=== PATIENT | female | born 1990 | race Hispanic/Latino ===

== ENCOUNTER 2018-10-30 20:35 | Emergency (ER) | payer MEDICAID, SELFPAY ==
[2018-10-30 21:55] LABS: Pregnancy Test - Urine (BHCG) Negative (Negative); Pregu Control Background? CLEAR/WHITE (CLR/WHITE); Pregu Control Bar Appear? YES (CONTROL BAR); Specific Gravity 1.032 (1.002-1.036)
--- NOTE | 2018-10-31 07:25 | RAD ---
PA AND LATERAL CHEST XRAY: DATE: 10/30/2018. HISTORY: Chest pressure. FINDINGS: Cardiac silhouette and pulmonary vasculature are within normal limits. Linear densities are seen in the medial right lung base which may be related to vascular structures or mild atelectasis. The lung s are otherwise clear. No pneumothorax or pleural effusion is seen. Osseous structures are intact. IMPRESSION: No acute cardiopulmonary process. POS: [facility]
== END 2018-10-30 23:11 | disposition home or self-care (01) ==
LOC: ERS 20:35
DX: J10.1 Influenza due to other identified influenza virus with other respiratory manifestations (principal)
CPT/HCPCS: 71046; 81025; 87804; 93005; 94640; J7620